=== PATIENT | male | born 2000 | race African-American/Black ===

== ENCOUNTER 2023-07-30 18:37 | Emergency (ER) | payer MEDICAID ==
[~2023-07-30] VITALS: Ht 182.9 cm; Wt 76.0 kg
[2023-07-30 19:08] VITALS: O2SAT 98
[2023-07-30 21:54] LABS: CLARITY URINE TURBID (CLEAR); COLOR URINE YELLOW (YELLOW); GLUCOSE URINE NEGATIVE (NEGATIVE); KETONES URINE NEGATIVE (NEGATIVE); LEUKOCYTE ESTERASE URINE NEGATIVE (NEGATIVE); NITRITE URINE NEGATIVE (NEGATIVE); OCCULT BLOOD URINE NEGATIVE (NEGATIVE); PROTEIN URINE NEGATIVE (NEGATIVE); SPECIFIC GRAVITY URINE 1.024 (1.005-1.030)
[2023-07-30 21:57] LABS: RBC URINE NONE SEEN /hpf (0-2); SQUAMOUS EPITHELIAL CELL URINE NONE SEEN /lpf (RARE/1+); WBC URINE NONE SEEN /hpf (0-2); YEAST URINE NONE SEEN
[2023-07-30 22:23] LABS: AMORPHOUS SEDIMENT URINE 2+ /lpf; BACTERIA URINE 2+
[2023-07-30 22:54] VITALS: BP 140/77; PULSE 65; RESP 18; TEMP 98.6
== END 2023-07-30 22:55 | disposition home or self-care (01) ==
LOC: ER 18:37
DX: A64 Unspecified sexually transmitted disease (principal); J45.909 Unspecified asthma, uncomplicated
CPT/HCPCS: 81003; 86592; 87491; 99283